=== PATIENT | male | born 1970 | race Caucasian/White ===

== ENCOUNTER 2021-05-04 12:20 | Inpatient (IN) | payer BC ==
[2021-05-04 13:39] LABS: CORONAVIRUS COVID-19 NAA POSITIVE (NEGATIVE)
[2021-05-04] MEDS ORDERED: Acetaminophen 325 MG Tab PO PRN (13:59)
[2021-05-04] MEDS: Dexamethasone 4 MG/ML SDV IVPUSH SCH (15:09)
[2021-05-04] MEDS ORDERED: REMDESIVIR 200 MG in Sodium Chloride 0.9% 250 ML IV ONE (16:00)
[2021-05-04] MEDS ORDERED: Polyethylene Glycol 3350 Powder 17 GM Packet PO PRN (16:28)
[2021-05-04] MEDS ORDERED: Ondansetron 4 MG/2 ML SDV IV PRN (16:28)
[2021-05-04] MEDS ORDERED: Sodium Chloride 0.9% 10 ML Syringe FLUSH PRN (16:28)
[2021-05-04] MEDS: Enoxaparin 40 MG/0.4 ML Syringe SUBCUT SCH (17:07)
[2021-05-04] MEDS: Acetaminophen 325 MG Tab PO PRN (20:44)
[2021-05-04] MEDS: Lisinopril 5 MG Tab PO SCH (20:45)
[2021-05-05] MEDS: Dexamethasone 4 MG/ML SDV IVPUSH SCH (09:19)
[2021-05-05] MEDS: Codeine/guaiFENesin 10-100 MG/5 ML Syrup 5 ML Cup PO PRN (13:39)
[2021-05-05] MEDS: REMDESIVIR 100 MG in Sodium Chloride 0.9% 100 ML IV SCH (15:28)
[2021-05-05] MEDS: Benzonatate 100 MG Cap PO PRN (16:28)
[2021-05-05] MEDS: Enoxaparin 40 MG/0.4 ML Syringe SUBCUT SCH (16:28)
[2021-05-05] MEDS: Acetaminophen 325 MG Tab PO PRN (16:29)
[2021-05-05] MEDS: Lisinopril 5 MG Tab PO SCH (21:52)
[2021-05-06] MEDS: Dexamethasone 4 MG/ML SDV IVPUSH SCH (09:16)
[2021-05-06] MEDS: Benzonatate 100 MG Cap PO PRN ×2 (09:16→21:39)
[2021-05-06] MEDS: Enoxaparin 40 MG/0.4 ML Syringe SUBCUT SCH (16:39)
[2021-05-06] MEDS: REMDESIVIR 100 MG in Sodium Chloride 0.9% 100 ML IV SCH (16:39)
[2021-05-06] MEDS: Lisinopril 5 MG Tab PO SCH (21:38)
[2021-05-06] MEDS: Acetaminophen 325 MG Tab PO PRN (21:38)
[2021-05-07] MEDS: Dexamethasone 4 MG/ML SDV IVPUSH SCH (08:40)
[2021-05-07] MEDS: Benzonatate 100 MG Cap PO PRN ×2 (10:08→21:01)
[2021-05-07] MEDS: REMDESIVIR 100 MG in Sodium Chloride 0.9% 100 ML IV SCH (16:14)
[2021-05-07] MEDS: Enoxaparin 40 MG/0.4 ML Syringe SUBCUT SCH (18:06)
[2021-05-07] MEDS: Lisinopril 5 MG Tab PO SCH (20:34)
[2021-05-08] MEDS: Dexamethasone 4 MG/ML SDV IVPUSH SCH (08:57)
[2021-05-08] MEDS: Enoxaparin 40 MG/0.4 ML Syringe SUBCUT SCH (17:06)
[2021-05-08] MEDS: Acetaminophen 325 MG Tab PO PRN (17:06)
[2021-05-08] MEDS: REMDESIVIR 100 MG in Sodium Chloride 0.9% 100 ML IV SCH (17:07)
[2021-05-08] MEDS: Benzonatate 100 MG Cap PO PRN (21:58)
[2021-05-08] MEDS: Lisinopril 5 MG Tab PO SCH (21:58)
[2021-05-09] MEDS ORDERED: Benzocaine/Cetylpyridinium/Menthol Lozenge MUCMEM PRN (03:05)
[2021-05-09] MEDS: Codeine/guaiFENesin 10-100 MG/5 ML Syrup 5 ML Cup PO PRN (08:38)
[2021-05-09] MEDS: Dexamethasone 4 MG/ML SDV IVPUSH SCH (08:39)
[2021-05-09] MEDS ORDERED: Loperamide 2 MG Cap PO PRN (13:12)
[2021-05-09] MEDS ORDERED: Enoxaparin 40 MG/0.4 ML Syringe SUBCUT ONE (14:00)
[2021-05-09] MEDS: cefTRIAXone 1 GM in Sodium Chloride 0.9% 50 ML IV SCH (17:51)
[2021-05-09] MEDS: Doxycycline 100 MG in Sodium Chloride 0.9% 100 ML IV SCH (18:38)
[2021-05-09] MEDS: Albuterol 8 GM Inhaler INH PRN (20:27)
[2021-05-09] MEDS: Enoxaparin 40 MG/0.4 ML Syringe SUBCUT SCH (20:27)
[2021-05-09] MEDS: Benzonatate 100 MG Cap PO PRN (20:28)
[2021-05-09] MEDS: Lisinopril 5 MG Tab PO SCH (20:28)
[2021-05-10] MEDS: Doxycycline 100 MG in Sodium Chloride 0.9% 100 ML IV SCH ×2 (06:01→18:31)
[2021-05-10] MEDS: Enoxaparin 40 MG/0.4 ML Syringe SUBCUT SCH ×2 (08:12→20:52)
[2021-05-10] MEDS: Dexamethasone 4 MG/ML SDV IVPUSH SCH (08:12)
[2021-05-10] MEDS: cefTRIAXone 1 GM in Sodium Chloride 0.9% 50 ML IV SCH (17:19)
[2021-05-10] MEDS: Lisinopril 5 MG Tab PO SCH (20:52)
[2021-05-11] MEDS: Albuterol 8 GM Inhaler INH PRN (01:44)
[2021-05-11] MEDS: Codeine/guaiFENesin 10-100 MG/5 ML Syrup 5 ML Cup PO PRN ×2 (01:47→09:15)
[2021-05-11] MEDS: Benzonatate 100 MG Cap PO PRN (01:47)
[2021-05-11] MEDS: Doxycycline 100 MG in Sodium Chloride 0.9% 100 ML IV SCH (06:14)
[2021-05-11] MEDS ORDERED: Enoxaparin 40 MG/0.4 ML Syringe SUBCUT SCH (09:00)
[2021-05-11] MEDS: Enoxaparin 100 MG/1 ML Syringe SUBCUT SCH ×2 (09:15→21:14)
[2021-05-11] MEDS: Dexamethasone 4 MG/ML SDV IVPUSH SCH (09:16)
[2021-05-11] MEDS: Levofloxacin/Dextrose 5%-Water 750 MG in Premix Bag 1 BAG IV SCH (13:14)
[2021-05-11] MEDS: Morphine 2 MG/ML SYRINGE IVPUSH PRN ×2 (18:29→21:25)
[2021-05-11] MEDS: Lisinopril 5 MG Tab PO SCH (21:14)
[2021-05-12] MEDS: Morphine 2 MG/ML SYRINGE IVPUSH PRN ×3 (07:47→19:26)
[2021-05-12] MEDS: Acetaminophen 325 MG Tab PO PRN (07:47)
[2021-05-12] MEDS: Enoxaparin 100 MG/1 ML Syringe SUBCUT SCH ×2 (08:02→21:41)
[2021-05-12] MEDS: Dexamethasone 4 MG/ML SDV IVPUSH SCH (08:02)
[2021-05-12] MEDS: Levofloxacin/Dextrose 5%-Water 750 MG in Premix Bag 1 BAG IV SCH (12:46)
[2021-05-12] MEDS: Codeine/guaiFENesin 10-100 MG/5 ML Syrup 5 ML Cup PO PRN (19:26)
[2021-05-12] MEDS: Benzonatate 100 MG Cap PO PRN (19:26)
[2021-05-12] MEDS: Lisinopril 5 MG Tab PO SCH (21:41)
[2021-05-13] MEDS: Morphine 2 MG/ML SYRINGE IVPUSH PRN ×3 (02:52→11:59)
[2021-05-13] MEDS: Codeine/guaiFENesin 10-100 MG/5 ML Syrup 5 ML Cup PO PRN ×2 (03:00→20:47)
[2021-05-13] MEDS: Dexamethasone 4 MG/ML SDV IVPUSH SCH (08:46)
[2021-05-13] MEDS: Enoxaparin 100 MG/1 ML Syringe SUBCUT SCH ×2 (08:48→20:47)
[2021-05-13] MEDS ORDERED: Furosemide 40 MG/4 ML VIAL IVPUSH ONE (10:15)
[2021-05-13] MEDS ORDERED: Ketorolac 30 MG/ML SDV IVPUSH ONE (10:16)
[2021-05-13] MEDS: Levofloxacin/Dextrose 5%-Water 750 MG in Premix Bag 1 BAG IV SCH (13:50)
[2021-05-13] MEDS: Ketorolac 30 MG/ML SDV IVPUSH PRN (17:54)
[2021-05-13] MEDS: Benzonatate 100 MG Cap PO PRN (20:47)
[2021-05-13] MEDS: Lisinopril 5 MG Tab PO SCH (20:47)
[2021-05-14] MEDS: Morphine 2 MG/ML SYRINGE IVPUSH PRN ×4 (02:17→22:30)
[2021-05-14] MEDS: Enoxaparin 100 MG/1 ML Syringe SUBCUT SCH ×2 (09:02→21:39)
[2021-05-14] MEDS: Dexamethasone 2 MG Tab PO SCH (09:02)
[2021-05-14] MEDS: Codeine/guaiFENesin 10-100 MG/5 ML Syrup 5 ML Cup PO PRN ×3 (09:05→21:40)
[2021-05-14] MEDS: Benzonatate 100 MG Cap PO PRN ×3 (09:12→21:38)
[2021-05-14] MEDS: Ketorolac 30 MG/ML SDV IVPUSH PRN ×2 (09:17→16:05)
[2021-05-14] MEDS: Levofloxacin/Dextrose 5%-Water 750 MG in Premix Bag 1 BAG IV SCH (12:21)
[2021-05-14] MEDS: Lisinopril 5 MG Tab PO SCH (21:38)
[2021-05-15] MEDS: Ketorolac 30 MG/ML SDV IVPUSH PRN ×3 (01:42→17:25)
[2021-05-15] MEDS: Morphine 2 MG/ML SYRINGE IVPUSH PRN ×6 (05:54→21:30)
[2021-05-15] MEDS: Dexamethasone 2 MG Tab PO SCH (08:38)
[2021-05-15] MEDS: Enoxaparin 100 MG/1 ML Syringe SUBCUT SCH ×2 (08:39→21:27)
[2021-05-15] MEDS ORDERED: Dexamethasone 2 MG Tab PO SCH (09:00)
[2021-05-15] MEDS: Levofloxacin/Dextrose 5%-Water 750 MG in Premix Bag 1 BAG IV SCH (13:27)
[2021-05-15] MEDS ORDERED: Dimethicone 20%/Zinc Oxide 25% 56 GM Spray Bottle TOP PRN (14:53)
[2021-05-15] MEDS: Lisinopril 5 MG Tab PO SCH (21:32)
[2021-05-15] MEDS: Codeine/guaiFENesin 10-100 MG/5 ML Syrup 5 ML Cup PO PRN (21:40)
[2021-05-16] MEDS: Ketorolac 30 MG/ML SDV IVPUSH PRN ×3 (02:56→17:14)
[2021-05-16] MEDS: Morphine 2 MG/ML SYRINGE IVPUSH PRN ×6 (02:58→14:49)
[2021-05-16] MEDS: Benzonatate 100 MG Cap PO PRN (08:16)
[2021-05-16] MEDS: Dexamethasone 2 MG Tab PO SCH (09:31)
[2021-05-16] MEDS: Enoxaparin 100 MG/1 ML Syringe SUBCUT SCH (09:32)
[2021-05-16] MEDS: Levofloxacin/Dextrose 5%-Water 750 MG in Premix Bag 1 BAG IV SCH (13:01)
[2021-05-16] MEDS: Acetaminophen 325 MG Tab PO PRN (13:03)
[2021-05-16] MEDS ORDERED: Morphine 4 MG/ML Syringe IVPUSH PRN (15:08)
[2021-05-16] MEDS ORDERED: Heparin Sodium 5,000 Units/ML Vial ONE (19:41)
[2021-05-16] MEDS ORDERED: Midazolam 1 MG/ML 2 ML SDV IVPUSH PRN (19:41)
[2021-05-16] MEDS ORDERED: propofoL 100 ML IV SCH (19:45)
[2021-05-16] MEDS ORDERED: Acetaminophen 325 MG Tab OGTUBE PRN (19:48)
[2021-05-16] MEDS ORDERED: Sodium Chloride 0.9% 1,000 ML IV SCH ×2 (20:00→23:45)
[2021-05-16] MEDS ORDERED: EPINEPHrine 1:10,000 1 MG/10 ML Syringe IV ONE ×3 (20:18→22:30)
[2021-05-16] MEDS ORDERED: Amiodarone 150 MG/3 ML SDV IV ONE (20:24)
[2021-05-16] MEDS ORDERED: Heparin Sodium 5,000 UNITS in Sodium Chloride 0.9% 500 ML IV SCH (20:30)
[2021-05-16] MEDS ORDERED: Norepinephrine 4 MG/4 ML SDV ONE ×3 (20:35→22:57)
[2021-05-16] MEDS: Norepinephrine Bit/D5W Premix 4 MG in Premix Bag 1 BAG IV SCH (20:40)
[2021-05-16] MEDS ORDERED: Propofol 200 MG/20 ML SDV ONE (20:58)
[2021-05-16] MEDS ORDERED: Succinylcholine 200 MG/10 ML MDV ONE (20:58)
[2021-05-16] MEDS ORDERED: Rocuronium 50 MG/5 ML Vial ONE (20:58)
[2021-05-16] MEDS ORDERED: Vasopressin 20 Units/1 ML MDV ONE ×2 (21:11→21:15)
[2021-05-16] MEDS ORDERED: Dextrose 5% in Water 250 ML ONE (21:17)
[2021-05-16] MEDS ORDERED: SODIUM CHLORIDE 0.9% IV SCH (21:20)
[2021-05-16] MEDS ORDERED: VASOPRESSIN IV SCH (21:20)
[2021-05-16] MEDS ORDERED: Sodium Chloride 0.9% 250 ML ONE (21:48)
[2021-05-16] MEDS ORDERED: EPINEPHrine 1 MG/ML 30 ML MDV IVPUSH ONE (22:02)
[2021-05-16] MEDS ORDERED: Sodium Bicarbonate 8.4% 50 MEQ/50 ML Syringe IVPUSH ONE ×4 (22:03→23:57)
[2021-05-16] MEDS ORDERED: Sodium Bicarbonate 8.4% 50 MEQ/50 ML Syringe IV ONE ×2 (22:08→22:09)
[2021-05-16] MEDS ORDERED: Dextrose 5% in Water 1,000 ML IV SCH (22:15)
[2021-05-16] MEDS ORDERED: Sodium Bicarbonate 150 MEQ in Dextrose 5% in Water 1,000 ML IV SCH ×2 (22:23)
[2021-05-16] MEDS ORDERED: Sodium Bicarbonate 8.4% 50 MEQ/50 ML Syringe ONE (22:31)
[2021-05-16] MEDS ORDERED: Calcium Gluconate 10% 1 GM/10 ML SDV IVPUSH ONE (23:00)
[2021-05-16] MEDS ORDERED: Hydrocortisone Sodium Succinate 100 MG/2 ML SDV IVPUSH ONE (23:47)
[2021-05-16] MEDS ORDERED: Ketamine 500 MG/5 ML MDV IV ONE (23:47)
[2021-05-16] MEDS ORDERED: Albuterol 0.083% 2.5 MG/3 ML Neb Soln NEB ONE (23:48)
[2021-05-16] MEDS ORDERED: Ketamine 500 MG/5 ML MDV ONE (23:49)
[2021-05-16] MEDS ORDERED: Albuterol/Ipratropium 3.0-0.5 MG/3 ML Neb Soln ONE (23:49)
[2021-05-16] MEDS ORDERED: Albuterol/Ipratropium 3.0-0.5 MG/3 ML Neb Soln INH ONE (23:55)
[2021-05-17] MEDS ORDERED: Ketamine 500 MG/5 ML MDV IV ONE (00:14)
[2021-05-17] MEDS ORDERED: Rocuronium 50 MG/5 ML Vial IV ONE (01:00)
[2021-05-17] MEDS ORDERED: Sodium Chloride 0.9% 250 ML ONE (01:04)
[2021-05-17] MEDS ORDERED: Norepinephrine 4 MG/4 ML SDV ONE ×2 (01:04)
[2021-05-17] MEDS ORDERED: Norepinephrine Bit/D5W Premix 250 ML ONE (02:51)
[2021-05-17] MEDS ORDERED: Dexamethasone 4 MG/ML SDV IVPUSH SCH (09:00)
[2021-05-18] MEDS: Norepinephrine Bit/D5W Premix 4 MG in Premix Bag 1 BAG IV SCH (12:44)
== END 2021-05-17 09:44 | disposition expired | DRG 950 ==
LOC: JP.ED 12:20 → JP.MS 15:41 → JP.2SS 15:53 → JP.ICU 05-12 15:03
PROVIDERS: ADMIT Hospitalist; ATTEND Internal Medicine
PROC: 8E0ZXY6 Isolation (ICD-10-PCS; 2021-05-04)
PROC: XW033E5 Introduction of Remdesivir Anti-infective into Peripheral Vein, Percutaneous Approach, New Technology Group 5 (ICD-10-PCS; 2021-05-04)
PROC: 3E0333Z Introduction of Anti-inflammatory into Peripheral Vein, Percutaneous Approach (ICD-10-PCS; 2021-05-04)
PROC: XW0DXM6 Introduction of Baricitinib into Mouth and Pharynx, External Approach, New Technology Group 6 (ICD-10-PCS; 2021-05-06)
PROC: 3E0DX3Z Introduction of Anti-inflammatory into Mouth and Pharynx, External Approach (ICD-10-PCS; 2021-05-14)
PROC: 0BH17EZ Insertion of Endotracheal Airway into Trachea, Via Natural or Artificial Opening (ICD-10-PCS; principal; 2021-05-16)
PROC: 5A1935Z Respiratory Ventilation, Less than 24 Consecutive Hours (ICD-10-PCS; 2021-05-16)
PROC: 03HB03Z Insertion of Infusion Device into Right Radial Artery, Open Approach (ICD-10-PCS; 2021-05-16)
PROC: 3E053XZ Introduction of Vasopressor into Peripheral Artery, Percutaneous Approach (ICD-10-PCS; 2021-05-16)
PROC: 02H633Z Insertion of Infusion Device into Right Atrium, Percutaneous Approach (ICD-10-PCS; 2021-05-16)
PROC: 5A12012 Performance of Cardiac Output, Single, Manual (ICD-10-PCS; 2021-05-17)
DX: U07.1 COVID-19 (principal); J12.82 Pneumonia due to coronavirus disease 2019; J96.01 Acute respiratory failure with hypoxia; N17.9 Acute kidney failure, unspecified; E87.5 Hyperkalemia; E87.2 Acidosis; I46.8 Cardiac arrest due to other underlying condition; H54.7 Unspecified visual loss; I10 Essential (primary) hypertension; E66.01 Morbid (severe) obesity due to excess calories; Z68.43 Body mass index [BMI] 50.0-59.9, adult; Z88.8 Allergy status to other drugs, medicaments and biological substances
CPT/HCPCS: 0241U; 36415; 51702; 71045; 71045-26; 80048; 80053; 80076; 82728; 82803; 83605; 83615; 84132; 84145; 84484; 85025; 85027; 85379; 85610; 85730; 86140; 87040; 93005; 93010; 94002; 94003; 94640; 94762; 96374; 99285; 99285-25; A9270-GY; J0171; J0248; J0282; J0330; J0610; J0696; J0713; J1100; J1650; J1720; J1885; J1940; J1956; J2270; J2704; J3490; J7030; J7050; J7060; J7620-GY; J8540